=== PATIENT | female | born 1995 | race American Indian/Alaskan Native ===

== ENCOUNTER 2020-08-22 01:26 | Inpatient (IN) | payer MEDICAID ==
[2020-08-22] MEDS ORDERED: LIDOCAINE (2%) 20 MG/1 ML VIAL 20 ML MDV INFILTRATI ONE ×2 (02:17→07:01)
[2020-08-22] MEDS ORDERED: TERBUTALINE 1 MG/1 ML INJ SUB-Q PRN (02:17)
[2020-08-22] MEDS ORDERED: ONDANSETRON 4 MG/2 ML INJ IV PRN (02:17)
[2020-08-22] MEDS ORDERED: MINERAL OIL 30 ML ORAL LIQD PO PRN (02:17)
[2020-08-22] MEDS ORDERED: BUTORPHANOL 2 MG/1 ML INJ IV PRN (02:17)
[2020-08-22] MEDS ORDERED: ACETAMINOPHEN 325 MG TAB PO PRN (02:17)
[2020-08-22] MEDS ORDERED: ePHEDrine SULFATE 50 MG/1 ML INJ IV PRN ×2 (02:17→05:18)
[2020-08-22] MEDS ORDERED: OXYTOCIN 20 UNIT/1000ML DRIP 20 UNITS/1,000 ML BAG IV SCH (03:00)
[2020-08-22] MEDS ORDERED: LACTATED RINGERS 1,000 ML IV SCH (03:00)
[2020-08-22] MEDS ORDERED: OXYTOCIN DRIP 30 UNITS/500 ML BAG IV SCH (03:00)
[2020-08-22 03:06] LABS: Hematocrit 33.9 % (30.3-42.9); Hemoglobin 11.3 gm/dl (10.1-14.3); Mean Corpuscular HGB Conc 33 % (30-34); Mean Corpuscular Volume 83 fl (79-97); Platelet Count 204 K/mm3 (140-440); Red Blood Count 4.11 M/mm3 (3.65-5.03); Red Cell Distribution Width 14.2 % (13.2-15.2)
[2020-08-22] MEDS ORDERED: DEXMEDETOMIDINE 200 MCG/2 ML VIAL IV ONE ×2 (05:01→06:33)
[2020-08-22] MEDS ORDERED: NALOXONE 2 MG/2 ML INJ IV PRN (05:18)
--- NOTE | 2020-08-22 05:19 | Anesthesia Consultation ---
Anesthesia Consult and Med Hx Date of service: 08/22/20 - Airway Anesthetic Teeth Evaluation: Good ROM Head & Neck: Adequate Mental/Hyoid Distance: Adequate Mallampati Class: Class II Intubation Access Assessment: Probably Good - Pulmonary Exam CTA: Yes - Cardiac Exam Cardiac Exam: RRR - Pre-Operative Health Status ASA Pre-Surgery Classification: ASA2 Proposed Anesthetic Plan: Epidural - Pulmonary Hx Asthma: No COPD: No Hx Pneumonia: No - Cardiovascular System Hx Hypertension: No - Central Nervous System Hx Seizures: No Hx Psychiatric Problems: No - Endocrine Hx Renal Disease: No Hx End Stage Renal Disease: No Hx Hypothyroidism: No Hx Hyperthyroidism: No - Hematic Hx Anemia: No Hx Sickle Cell Disease: No - Other Systems Hx Alcohol Use: No
--- NOTE | 2020-08-22 05:20 | Progress Note ---
Labor Epidural - Labor Epidural Start Time: 05:00 Stop Time: 05:12 Performed by:: COLUMBA ARMENTA Procedure: Patient is requesting epidural for labor pain. H&P, and labs reviewed. Procedure explained, questions answered, consent obtained. Patient in sitting position with blood pressure cuff and pulse ox on and working. Timeout performed immediately before start of procedure. Sterile betadine prep/drape. 3 mL 1% lidocaine skin wheal at L[3]-L[4]. 18-gauge Touhy epidural needle advanced to [id number] with saline at [7] cm. Epidural dexmedetomidine [30] mcg administered. Epidural catheter advanced to [12] cm, negative aspiration for blood and csf, negative test dose 3 ml 1.5% lidocaine with epinephrine. Sterile steri-strips and tegaderm applied, followed by tape reinforcement. Patient tolerated procedure well. Catrina SRNA
[2020-08-22] MEDS ORDERED: fentaNYL-BUPIV 2 MCG/ML-0.125% 200 MCG/100 ML BAG EPIDURAL SCH (06:00)
[2020-08-22] MEDS ORDERED: dexAMETHasone 20 MG/5 ML VIAL ONE (06:33)
[2020-08-22] MEDS ORDERED: PHENYLEPHRINE/NS 1,000 MCG/10 ML SYRINGE (OR USE) IV ONE (06:33)
[2020-08-22] MEDS ORDERED: BUPIVACAINE/PF (0.5%) 5 MG/1 ML 30 ML VIAL INFILTRATI ONE (06:33)
[2020-08-22] MEDS ORDERED: KETOROLAC 30 MG/1 ML INJ ONE (06:33)
--- NOTE | 2020-08-22 07:38 | History and Physical Report ---
History of Present Illness Date of examination: 08/22/20 Date of admission: 08/22/20 02:18 Chief complaint: Intense Labor Pains History of present illness: Late entry to care at 20 weeks, course complicated by exposure to ETOH and THC in early ; also has left breast mass (Bx done). Past History Past Medical History: no pertinent history Past Surgical History: breast surgery (Bx: 06/22/2020) Family/Genetic History: none Social history: single, smoking (THC), alcohol abuse (Early ) - Obstetrical History Expected Date of Delivery: 08/26/20 Actual Gestation: 39 Week(s) 3 Day(s) : 2 Induced : 1 Medications and Allergies Allergies Allergy/AdvReac Type Severity Reaction Status Date / Time No Known Allergies Allergy Unverified 08/16/20 18:38 Active Meds: Active Medications Acetaminophen (Tylenol) 650 mg PO Q4H PRN PRN Reason: Pain, Mild (1-3) Butorphanol Tartrate (Stadol) 2 mg IV Q2H PRN PRN Reason: Pain , Severe (7-10) Ephedrine Sulfate (Ephedrine Sulfate) 10 mg IV Q2M PRN PRN Reason: Hypotension Oxytocin/Sodium Chloride (Pitocin/Ns 30 Unit/500ml) 30 units in 500 mls @ 2 mls/hr IV TITR MICHELLE; Protocol Last Titration: 08/22/20 07:05 Dose: 8 ml/hr, 8 mls/hr Documented by: Lactated Ringer's (Lactated Ringers) 1,000 mls @ 125 mls/hr IV DIRECT MICHELLE Oxytocin/Sodium Chloride (Pitocin/Ns 20 Unit/1000ml Drip) 20 units in 1,000 mls @ 125 mls/hr IV DIRECT MICHELLE Fentanyl/Bupivacaine/Sodium Chlor (Fentanyl-Bupiv 2 Mcg/Ml-0.125%) 200 mcg in 100 mls @ 12 mls/hr EPIDURAL TITR MICHELLE; Protocol Last Admin: 08/22/20 06:07 Dose: 12 mls/hr Documented by: Mineral Oil (Mineral Oil) 30 ml PO QHS PRN PRN Reason: Constipation Naloxone HCl (Naloxone) 0.2 mg IV Q5M PRN PRN Reason: Respiratory sedation Ondansetron HCl (Zofran) 4 mg IV Q8H PRN PRN Reason: Nausea And Vomiting Terbutaline Sulfate (Brethine) 0.25 mg SUB-Q ONCE PRN PRN Reason: Hyperstimulation/Hypertonicity Review of Systems All systems: negative - Vital Signs Vital signs: Vital Signs Pulse Pulse Ox 42 L 95 08/22/20 01:52 08/22/20 01:52 Temp Pulse Resp BP Pulse Ox 98.2 F 95 H 16 102/57 100 08/22/20 07:10 08/22/20 07:28 08/22/20 07:10 08/22/20 07:10 08/22/20 07:28 - Physical Exam Breasts: Positive: normal Cardiovascular: Regular rate Lungs: Positive: Clear to auscultation, Normal air movement Abdomen: Positive: normal appearance, soft, normal bowel sounds Genitourinary (Female): Positive: normal external genitalia, normal perenium Vagina: Positive: normal moisture Uterus: Positive: enlarged - Obstetrical FHR: category 2 FHR comments: FHR: 120, moderate varability, +accels, +occ varabile decels Uterine Contraction Monitor Mode: External Cervical Dilatation: 9 (moderate amount of clear fluid upon AROM at 0621) Cervical Effacement Percentage: 100 station: -1 Uterine Contraction Pattern: Regular Uterine Tone Measurement Phase: Resting Uterine Contraction Intensity: Moderate Results Result Diagrams: 08/22/20 02:35 Abnormal lab results 08/22/20 Range/Units 02:35 MCH 27 L (28-32) pg All other labs normal. Assessment and Plan A: IUP @ 39 3/7 Weeks Category II Tracing Active Labor GBS Negative P: Admit to L&D Per Routine Orders Pitocin Augmentation AROM Multiple Maternal Position Changes
--- NOTE | 2020-08-22 11:48 | Procedure Note ---
OB Delivery Note - Delivery Date of Delivery: 08/22/20 (1111) Surgeon: KESHIA SORTO (CNM) Estimated blood loss: 300cc - Vaginal Delivery presentation: vertex Delivery position: OA (ANDREAS) Intrapartum events: none Delivery induction: none Delivery augmentation: pitocin Delivery monitor: external FHT, external uterine Route of delivery: Delivery placenta: spontaneous (1115, danielson) Delivery cord: nuchal cord (x 1), 3 umbilical vessels Episiotomy: none Delivery laceration: 1st degree Delivery repair: vicryl (3.0 - SH) Anesthesia: epidural Delivery comments: of viable, crying, male with nuchal cord x 1, reduced at perineum. Placed directly to maternal abdomen. Cord double clamped, cut by FOB after cessation of pulsation. Placenta delivered spontaneously, danielson, disposed per hospital policy. Uterus firm @ U - 3, hemostasis maintained. Perineum with 1st degree laceration, repaired. Mother and baby safe, stable and left in care of RN. - A at 1 minute: 8 at 5 minutes: 9 Infant Gender: Male (Weight: 3181 gms (7lbs 0.2ozs) 19 inches)
[2020-08-22] MEDS ORDERED: diphenhydrAMINE 25 MG CAP PO PRN (12:00)
[2020-08-22] MEDS ORDERED: WITCH HAZEL/ GLYCERIN PAD TP PRN (12:00)
[2020-08-22] MEDS ORDERED: oxyCODONE /ACETAMINOPHEN 5-325MG TAB PO PRN (12:00)
[2020-08-22] MEDS ORDERED: LANOLIN/ZINC/DIMETHICONE (LANSINOH) 7 GM TP PRN (12:00)
[2020-08-22] MEDS ORDERED: PROMETHAZINE 25 MG TAB PO PRN (12:00)
[2020-08-22] MEDS: IBUPROFEN 600 MG TAB PO SCH ×2 (18:41→18:44)
[2020-08-22] MEDS ORDERED: MAGNESIUM HYDROXIDE (MOM) ORAL LIQD UDC PO PRN (22:00)
[2020-08-22 23:07] LABS: Hematocrit 30.7 % (30.3-42.9); Hemoglobin 10.1 gm/dl (10.1-14.3)
[2020-08-23] MEDS: IBUPROFEN 600 MG TAB PO SCH ×2 (01:39→07:14)
--- NOTE | 2020-08-23 12:38 | Progress Note ---
Assessment and Plan A: PP Day #1 Stable P: Follow Routine Orders D/C home in the AM RTO in 6 Weeks Subjective - Subjective Date of service: 08/23/20 Interval history: Late entry to care at 20 weeks, course complicated by exposure to ETOH and THC in early ; also has left breast mass (Bx done). Patient reports: appetite normal, voiding normally, pain well controlled, flatus, ambulating normally : doing well, bottle feeding (and ) Objective - Vital Signs Latest vital signs: Vital Signs Temp Pulse Resp BP Pulse Ox 08/23/20 07:53 97.9 F 91 H 18 115/65 96 08/23/20 04:30 98.0 F 113 H 18 114/65 96 08/23/20 00:19 100.0 F H 108 H 18 98/52 93 08/22/20 16:09 98.3 F 87 18 110/64 99 08/22/20 12:49 77 124/74 Intake and Output 08/22/20 08/23/20 08/23/20 22:59 06:59 14:59 Intake Total 200 480 Output Total 600 800 Balance -400 -800 480 Intake: Oral 200 240 Intake, Free Water 240 Output: Urine 600 800 Void 600 800 Other: Total, Intake Amount 200 120 Total, Output Amount 600 800 # Voids Void 1 1 1 - Exam Breasts: Present: normal Cardiovascular: Present: Regular rate Lungs: Present: Clear to auscultation, Normal air movement Abdomen: Present: normal appearance, soft, normal bowel sounds Uterus: Present: normal, firm, fundal height below umbilicus Extremities: Present: normal
--- NOTE | 2020-08-23 12:39 | Discharge Summary ---
Providers - Providers Date of Admission: 08/22/20 07:31 Date of discharge: 08/24/20 Attending physician: GIANNA DUCKWORTH Primary care physician: GIANNA DUCKWORTH Hospitalization Reason for admission: active labor Delivery: Episiotomy: none Laceration: 1st degree Other procedures: none complications: none Discharge diagnosis: IUP at term delivered Juliette baby: male Condition at discharge: Good Disposition: DC-01 TO HOME OR SELFCARE Plan - Provider Discharge Summary Activity: routine, no sex for 6 weeks, no heavy lifting 4 weeks, no strenuous exercise Diet: routine Instructions: routine Additional instructions: [] Smoking cessation referral if applicable(refer to patient education folder for contact #) [] Refer to [facility] Booklet Call your doctor immediately for: * Fever > 100.5 * Heavy vaginal bleeding ( >1 pad per hour) * Severe persistent headache * Shortness of breath * Reddened, hot, painful area to leg or breast * Drainage or odor from incision. * Keep incision clean and dry at all times and follow doctor's instructions regarding bathing/showering - Follow up plan Follow up: GIANNA DUCKWORTH MD [Primary Care Provider] - 6 Weeks
--- NOTE | 2020-08-23 19:04 | Post Anesthesia Evaluation ---
- Post Anesthesia Evaluation Patient Participated: Yes Airway Patent: Yes Stable Respiratory Function: Yes Nausea/Vomiting: No Temp > 96.8F: Yes Pain Manageable: Yes Adequeate Hydration: Yes Anesthesia Complications: No Block Receding Appropriately: Yes
[2020-08-24] MEDS: IBUPROFEN 600 MG TAB PO SCH (12:24)
[2020-08-24 14:47] VITALS: BP 117/67
== END 2020-08-24 13:50 | disposition home or self-care (01) | DRG 775 ==
LOC: TRG 01:26 → APU 01:33 → TRG 02:17 → LD 02:18 → OBSVTOIN 07:31 → OB 13:50
PROVIDERS: ADMIT Obstetrics & Gynecology; ATTEND Obstetrics & Gynecology
PROC: 10E0XZZ Delivery of Products of Conception, External Approach (ICD-10-PCS; principal; 2020-08-22)
PROC: 3E0R3BZ Introduction of Anesthetic Agent into Spinal Canal, Percutaneous Approach (ICD-10-PCS; 2020-08-22)
PROC: 00HU33Z Insertion of Infusion Device into Spinal Canal, Percutaneous Approach (ICD-10-PCS; 2020-08-22)
PROC: 0HQ9XZZ Repair Perineum Skin, External Approach (ICD-10-PCS; 2020-08-22)
DX: O69.81X0 Labor and delivery complicated by cord around neck, without compression, not applicable or unspecified (principal); Z3A.39 39 weeks gestation of pregnancy; Z37.0 Single live birth; O70.0 First degree perineal laceration during delivery; Z20.828 Contact with and (suspected) exposure to other viral communicable diseases
CPT/HCPCS: 36415; 59025; 85014; 85018; 85027; 86592; 86850; 86900; 86901; 96360; 96361; 96365; 96366; G0378; A6250; J1100; J1885; J2370; J2590; J3490; U0003-CS